=== PATIENT | male | born 1990 | race American Indian/Alaskan Native ===

== ENCOUNTER 2019-05-03 19:35 | Emergency (ER) | payer BC ==
--- NOTE | 2019-05-03 21:32 | Emergency Department Report ---
Chief Complaint: Upper Respiratory Infection Stated Complaint: BODY PAIN , COUGH,CONGESTED Time Seen by Provider: 05/03/19 21:23 - HPI History of Present Illness: GENOVEVA is a 29-year-old [place] male who is presenting with 2 days of cough, congestion and body aches and mild nausea without vomiting for last 2 days. Patient states the cough is nonproductive. Patient is taken only one dose of cough medicine to get from [facility] [employer]. She had body aches in his arms legs and lower back. - ROS Review of Systems: All other systems are reviewed and are negative - Exam Vital Signs: Vital Signs 05/03/19 05/03/19 20:00 21:19 Temperature 98.5 F Pulse Rate 71 77 Respiratory 18 18 Rate Blood Pressure 139/98 150/116 [Left] O2 Sat by Pulse 96 99 Oximetry Physical Exam: Patient is alert and oriented 3. There is no lymphadenopathy in the anterior cervical chain. Oropharynx is clear without exudate. Neck is stiff supple. Lungs clear to auscultation in all cannon. Heart tones are within normal limits. His abdomen is soft and nontender. Is awake and alert and oriented. MSE screening note: Focused history and physical exam performed. Due to findings the following was ordered: ED Medical Decision Making - Medical Decision Making Patient likely with influenza or flulike illness. Patient's lungs are clear to auscultation and is in no acute distress. Patient is not vomiting and is able to orally hydrate. Patient given a list of medications to get obtain [id number]. The patient does not have an acute emergent condition at this time and has been released to follow up with outpatient resources. ED Disposition for MSE Clinical Impression: Flu-like symptoms Disposition: MED SCREENING EXAM-LEFT Is pt being admited?: No Does the pt Need Aspirin: No Condition: Stable Instructions: Influenza (ED) Additional Instructions: Please take up to 800 mg of ibuprofen (Motrin or Advil) every 6-8 hours for body aches. Please take Mucinex cold and flu as directed on the packaging. Also please by Flonase and use daily for nasal congestion. Forms: Accompanied Note Time of Disposition: 21:32
[2019-05-03 21:56] VITALS: BP 134/90
== END 2019-05-03 22:00 | disposition left against medical advice (07) ==
LOC: ED 19:35
DX: R05 Cough (principal); R09.89 Other specified symptoms and signs involving the circulatory and respiratory systems; R11.0 Nausea
CPT/HCPCS: 99282